=== PATIENT | female | born 1960 | race Caucasian/White ===

== ENCOUNTER 2025-09-02 10:47 | Outpatient (REF) | payer MEDICARE, MEDICAID, SELFPAY ==
--- OUTSIDE RECORDS SUMMARY | 2025-09-02 09:30 | XMS_ITS | Encounter Summary ---
Author Organization [employer] Address [address] [facility] [address] [place] [address] Care Team Providers Care Property Master Name Role Phone Jackie Stewart Primary Care Provider [phone] Encounter Details Date Type Department Care Team ([facility] Contact Info) Description 09/02/2025 9:30 AM EST Office Visit [facility] [address] [place] [address] Jackie Stewart FNP [address] [place] [address] Encounter for adult wellness visit (Primary Dx); Gastroesophageal reflux disease, unspecified whether esophagitis present Social History Tobacco Use Types Packs/Day Years Used Date Smoking Tobacco: Former Cigarettes Passive Smoke Exposure: Never Smokeless Tobacco: Never Comments:Smoked for 22 yrs a t 1 pk a day Alcohol Use Standard Drinks/Week Comments Never 0 (1 standard drink = 0.6 oz pur e alcohol) Depression Answer Date Recorded Patient Health Questionnaire-9 Score 10 09/02/2025 Patient Health Questionnaire-9 Score 10 09/02/2025 Last PHQ-9: Questionnaire Data Not on file 1 11/02/2024 Housing Stability Answer Date Recorded What is your housing situation today? I have apoorva medina 08/26/[address] you li ve. Do you have problems with any of the following? None of the above 08/26/2025 Food Insecurity Answer Date Recorded Within the past 12 months, y ou worried that your food would run out before you got money to buy more: Never True 08/26/2025 Within the past 12 months,th e food you bought just didn't last and you didn't have enough money to get more: Never True Transportation Answer Date Recorded In the past 12 months, has l ack of transportation kept you from medical appts, meetings, work or from getting things needed for daily living? No 08/26/2025 Utilities Answer Date Recorded In the past 12 months, has t he electric, gas, oil or water company threatened to shut off services in your home? No 08/26/2025 Depression Answer Date Recorded Patient Health Questionnaire-2 Score 3 09/02/2025 Internet Access Answer Date Recorded Internet Access Q1 Yes 08/26/2025 Internet Access Q2 Not on file 08/26/2025 Comments Unknown Sex and Gender Information Value Date Recorded Sex Assigned at Female 08/13/2022 10:39 AM EDT Legal Sex Female 10:39 AM EDT Gender Identity Female 08/13/2022 10:39 AM EDT Sexual Orientation Don't know 08/13/2022 10 :39 AM EDT documented as of this encounter Last Filed Vital Signs Vital Sign Reading Time Taken Comments Blood Pressure 146/90 09/02/2025 9:48 AM EST Pulse 96 09/02/2025 9:48 AM EST Temperature 37 C (98.6 F) 09/02/2025 9:48 AM EST Respiratory Rate 22 09/02/2025 9:48 AM EST Oxygen Saturation 98% 09/02/2025 9:48 AM EST Inhaled Oxygen Concentration - - Weight 62.7 kg (138 lb 4 oz) 09/02/2025 9:48 AM EST Height 156.9 cm (5' 1.76 ) 09/02/2025 9:48 AM ES T Body Mass Index 25.48 09/02/2025 9:48 AM EST documented in this encounter Functional Status * Over the past 2 weeks, how often have you been bothered by any of the following problems? Question Answer Date of Assessment Author Patient Health Questionnaire-2 Score 3 09/02/2025 10:48 AM EST Marla Crockett MA * Little interest or pleasure in doing things Answer Date of Assessment Author Several days 09/02/2025 10:48 AM Marla Bryant Ma, [place] * Feeling down, depressed, or hopeless Answer Date of Assessment Author More than half the days 09/02/2025 10:48 AM Marla Talamantes MA * Trouble falling or staying asleep, or sleeping too much Answer Date of Assessment Author More than half the days 09/02/2025 10:48 AM Marla Talamnates MA * Feeling tired or having little energy Answer Date of Assessment Author More than half the days 09/02/2025 10:48 AM Marla Talamantes MA * Poor appetite or overeating Answer Date of Assessment Author More than half the days 09/02/2025 10:48 AM Marla Talamantes MA * Feeling bad about yourself - or that you are a failure or have let yourself or your family down Answer Date of Assessment Author Not at all 09/02/2025 10:48 AM Marla Bryant Ma, [place] * Trouble concentrating on things, such as reading the newspaper or watching television Answer Date of Assessment Author Several days 09/02/2025 10:48 AM Marla Bryant Ma, [place] * Moving or speaking so slowly that other people could have noticed? Or the opposite - being so fidgety or restless that you have been moving around a lot more than usual. Answer Date of Assessment Author Not at all 09/02/2025 10:48 AM Marla Bryant Ma, [place] * Thoughts that you would be better off or hurting yourself in some way Answer Date of Assessment Author Not at all 09/02/2025 10:48 AM Marla Bryant Ma, [place] * Patient Health Questionnaire-9 Score Answer Date of Assessment Author 10 09/02/2025 10:48 AM Marla Bryant Ma, [place] * Over the last 2 weeks, how often have you been bothered by any of the following problems? Question Answer Date of Assessment Author Feeling nervous, anxious, or on edge 1 09/02/2025 10:48 AM Marla Talamantes MA Not being able to stop or control worrying 1 09/02/2025 10:48 AM Marla Talamantes MA Worrying too much about different things 1 09/02/2025 10:48 AM Marla Talamantes MA Trouble relaxing 1 09/02/2025 10:48 AM Marla Talamantes MA Being so restless that it is hard to sit still 0 09/02/2025 10:48 AM Marla Talamantes MA Becoming easily annoyed or irritable 0 09/02/2025 10:48 AM Marla Talamantes MA Feeling afraid as if something awful might happen 1 09/02/2025 10:48 AM Marla Trejo MA MAYELA-7 Total Score 5 09/02/2025 10:48 AM Marla Talamantes MA * How difficult have these problems made it for you to do your work, take care of things at home, or get along with other people? Answer Date of Assessment Author Not difficult at all 09/02/2025 10:48 AM Marla Mariano MA documented as of this encounter Plan of Treatment Scheduled Orders Name Type Priority Associated Diagnoses Orde r Schedule Hepatitis C Antibody with Reflex to HCV, RNA, Quantitative, Real-Time PCR Lab Routine Encounter for adult wellness visit Expected: 09/02/2025, Expires: 09/02/2026 HIV-1/2 Antigen and Antibodies, Fourth Generation, with Reflexes Lab Routine Encounter for adult wellness visit Expected: 09/02/2025 (Approximate), Expires: 09/02/2026 Chlamydia/N. Gonorrhoeae, PCR, Urine Lab Routine Encounter for adult wellness visit Ordered: 09/02/2025 documented as of this encounter Procedures Procedure Name Priority Date/Time Associated Diagnosis Comments CBC WITH AUTO DIFFERENTIAL Routine 09/02/2025 10:55 AM EST Encounter for adult wellness visit TSH Routine 09/02/2025 10:55 AM EST Encounter for adult wellness visit LIPID PANEL, STANDARD Routine 09/02/2025 10:55 AM EST Encounter for adult wellness visit COMPREHENSIVE METABOLIC PANEL Routine 09/02/2025 10:55 AM EST Encounter for adult wellness visit documented in this encounter Results * (ABNORMAL) Lipid Panel, Standard (09/02/2025 10:55 AM EST) Triglycerides 202(H) <150 mg/dL [facility] Comment:Desirable Triglyceri de: less than 150 mg/dLBorderline High Triglyceride 150-199 mg/dLHigh Triglyceride: 200-499 mg/dLVery High Triglyceride: greater than or equal to 5OO mg/dL Cholesterol 181 <200 mg/dL [facility] Comment:Desirable Cholestero l: less than 200 mg/dLBorderline High Cholesterol: 200-239 mg/dLHigh Cholesterol: greater than 239 mg/dL LDL Cholesterol Calculated 100(H) <100 mg/dL [facility] Comment:Desirable LDL: less than 100 mg/dLNear Optimal/Above Optimal LDL: 110- 129 mg/dLBorderline High LDL: 130-159 mg/dLHigh LDL: 160-189 mg/dLVery High LDL: greater than or equal to 190 mg/dL HDL Cholesterol 41 >40 mg/dL [facility] Comment:Desirable HDL: grea ter than 40 mg/dL Note: This HDL assay may give artificially low results in patients with liver disease. Blood Venous blood specimen / Unknown 09/02/2025 10:55 AM EST 09/02/2025 12:50 PM EST us Jackie Stewart [employer]PA[employer] [facility] BLOOD ORDERABLES Final Res ult [facility] [address] [place] [address] [phone] * (ABNORMAL) CBC auto differential (09/02/2025 10:55 AM EST) White Blood Count 8.4 4.8 - 10.8 X10*3/uL [facility] Red Blood Count 3.15(L) 4.20 - 5.50 X10*6/uL [facility] Hemoglobin 8.4(L) 12.0 - 16.0 g/dl [facility] Hematocrit 29.6(L) 37.0 - 47.0 % [facility] Mean Corpuscular Volume 94.0 80.0 - 98.0 fL [facility] Mean Corpuscular Hemoglobin 26.7(L) 27.0 - 33.0 pg [facility] Mean Corpuscular HGB Conc 28.4(L) 31.0 - 35.0 g/dl [facility] Red Cell Distribution Width 20.9(H) 11.0 - 16.0 % [facility] Platelet Count 351 160 - 400 X10*3/uL [facility] Mean Platelet Volume 11.6 9.4 - 12.3 fL [facility] Neutrophils Percent Auto 71.6 45 - 73 % [facility] Imm Gran Pct Auto 0.8(H) 0.0 - 0.4 % [facility] Lymphocytes Percent Auto 14.7(L) 20 - 40 % [facility] Monocytes Percent Auto 6.0 2 - 11 % [facility] Eosinophils Percent Auto 6.5(H) 0 - 4 % [facility] Basophils Percent Auto 0.4 0 - 2 % [facility] NRBC Pct Auto 0.0 0.0 - 0.2 /100WBC [facility] Neutrophils Absolute Auto 6.0 2.0 - 8.3 x10*3/uL [facility] Imm Gran Abs Auto 0.07(H) 0.00 - 0.03 X10*3/uL [facility] Lymphocytes Absolute Auto 1.2 1.2 - 4.9 X10*3/uL [facility] Monocytes Absolute Auto 0.5 0.1 - 1.2 X10*3/uL [facility] Eosinophils Absolute Auto 0.6(H) 0.0 - 0.4 X10*3/uL [facility] Basophils Absolute Auto 0.0 0.0 - 0.2 X10*3/uL [facility] NRBC Abs Auto 0.000 0.0 - 0.012 X10*3/uL [facility] Blood Venous blood specimen / Unknown 09/02/2025 10:55 AM EST 09/02/2025 12:50 PM EST us [employer] [facility] BLOOD ORDERABLES Final Res ult Performing Organization Address City/[facility]/ZIP Co de Phone Number [facility] [address] [place] [phone] * TSH (09/02/2025 10:55 AM EST) Thyroid Stimulating Hormone 1.86 0.32 - 4.0 uIU/mL [facility] Comment:TSH 3rd Generation ( [employer]) Blood Venous blood specimen / Unknown 09/02/2025 10:55 AM EST 09/02/2025 12:50 PM EST [facility] Final Res ult Performing Organization Address [facility] Co de Phone Number [facility] [address] [place] [phone] * (ABNORMAL) Comprehensive Metabolic Panel (09/02/2025 10:55 AM EST) Sodium 144 135 - 145 mmol/L [facility] Potassium 3.8 3.3 - 5.1 mmol/L [facility] Chloride 113(H) 96 - 108 mmol/L [facility] Carbon Dioxide 24 22 - 29 mmol/L [facility] Anion Gap 11(L) 12 - 20 [facility] Urea Nitrogen (BUN) 15 9 - 16 mg/dL [facility] Creatinine, Serum 1.21 0.5 - 1.4 mg/dL [facility] Estimated Glomerular Filt Rate 44 [facility] Comment:Chronic Kidney Disea se: Estimated GFR < 60 mL/min/1.17e3Cgamsr Kidney Disease: Estimated GFR < 15 mL/min/1.73m2 Glucose 101 60 - 115 mg/dL [facility] Calcium 8.5 8.4 - 10.2 mg/dL [facility] Bilirubin, Total 0.1 0.0 - 1.0 mg/dL [facility] Aspartate Amino Transferase 22 5 - 31 U/L [facility] Alanine Aminotransferase 6 0 - 31 U/L [facility] Total Protein 7.2 6.5 - 8.0 g/dL [facility] Albumin Level 3.7 3.5 - 5.0 g/dL [facility] Alkaline Phosphatase 143(H) 39 - 117 U/L [facility] Blood Venous blood specimen / Unknown 09/02/2025 10:55 AM EST 09/02/2025 12:50 PM EST Jackie MORENO LAB BLOOD ORDERABLES Final Res ult [facility] [address] [place] [phone] documented in this encounter Visit Diagnoses Diagnosis Encounter for adult wellness visit- Primary Gastroesophageal reflux disease, unspecified whether esophagitis present documented in this encounter Additional Health Concerns Assessment Noted Time PHQ-9 Depression Total Score: 10 025 10:48 AM EST documented as of this encounter Care Teams Property Master Relationship Specialty Start Date End Date Jackie Stewart FNP [address] [place] [phone] PCP - General Family Medicine 08/06/25 documented as of this encounter
[2025-09-02 12:58] LABS: MANUAL DIFF FLAG NO
[2025-09-02 13:11] LABS: Hematocrit 29.6 % (37.0-47.0); Hemoglobin 8.4 g/dl (12.0-16.0); Imm Gran Abs Auto 0.07 X10*3/uL (0.00-0.03); Imm Gran Pct Auto 0.8 % (0.0-0.4); Lymphocytes Absolute Auto 1.2 X10*3/uL (1.2-4.9); Mean Corpuscular HGB Conc 28.4 g/dl (31.0-35.0); Mean Corpuscular Hemoglobin 26.7 pg (27.0-33.0); Mean Corpuscular Volume 94.0 fL (80.0-98.0); NRBC Abs Auto 0.000 X10*3/uL (0.0-0.012); NRBC Pct Auto 0.0 /100WBC (0.0-0.2); Platelet Count 351 X10*3/uL (160-400); Red Blood Count 3.15 X10*6/uL (4.20-5.50); White Blood Count 8.4 X10*3/uL (4.8-10.8)
[2025-09-02 14:07] LABS: Alanine Aminotransferase 6 U/L (0-31); Albumin Level 3.7 g/dL (3.5-5.0); Alkaline Phosphatase 143 U/L (39-117); Anion Gap 11 (12-20); Aspartate Amino Transferase 22 U/L (5-31); Blood Urea Nitrogen 15 mg/dL (9-16); Calcium 8.5 mg/dL (8.4-10.2); Carbon Dioxide 24 mmol/L (22-29); Chloride 113 mmol/L (96-108); Cholesterol 181 mg/dL (<200); Estimated Glomerular Filt Rate 44; HDL Cholesterol 41 mg/dL (>40); Potassium 3.8 mmol/L (3.3-5.1); Sodium 144 mmol/L (135-145); Total Protein 7.2 g/dL (6.5-8.0); Triglycerides 202 mg/dL (<150)
[2025-09-02 14:15] LABS: Thyroid Stimulating Hormone 1.86 uIU/mL (0.32-4.0)
--- OUTSIDE RECORDS SUMMARY | 2025-09-02 16:22 | XMS_ITS | Encounter Summary ---
Author Organization [employer] Address [address] [place] [address] [address] [place] [address] Care Team Providers Care Oral Surgery Physician Name Role Phone Jackie Stewart Primary Care Provider [phone] Reason for Visit * Reason Onset Date Comments Chart Prep 09/01/2025 Encounter Details Date Type Department Care Team ([facility] Contact Info) Description 09/01/2025 Telephone [facility] MEDICINE [address] [place] [address] Jackie Stewart FNP [address] [place] [address] Chart Prep Social History Tobacco Use Types Packs/Day Years Used Date Smoking Tobacco: Never Smokeless Tobacco: Never Alcohol Use Standard Drinks/Week Comments Never 0 [...] AM EDT documented as of this encounter Miscellaneous Notes * Telephone Encounter - Apoorva Bradshaw MA - 09/01/2025 10:06 AM EST Chart Prep Labs: done Images: not done Referrals: not applicable Vaccines due: Covid, Flu, PCV20, Zoster, and DTAP Screenings: colonoscopy and mammogramAlcohol/Substance Use Screening Overdue care gaps: SBIRT, PHQ-9, and MAYELA-7 documented in this encounter Plan of Treatment Not on file documented as of this encounter Visit Diagnoses Not on filedocumented in this encounter Care Teams Oral Surgery Physician Relationship Specialty Start Date End Date Jackie Stewart FNP [address] [place] [phone] PCP - General Family Medicine 08/06/25 documented as of this encounter
--- OUTSIDE RECORDS SUMMARY | 2025-09-02 16:22 | XMS_ITS | Encounter Summary ---
Author Organization [employer] Address [address] [facility] [address] [place] [address] Care Team Providers Care Diamond Die Driller Name Role Phone Jackie Stewart STAMPER BLOCKER Primary Care Provider [phone] Encounter Details Date Type Department Care Team (Latest Contact Info) Description 09/02/2025 Travel Social History Tobacco Use Types Packs/Day Years [...] AM EDT documented as of this encounter Functional Status * Over the past 2 weeks, how often have you been bothered by any of the following problems? Question Answer Date of Assessment Author Patient Health Questionnaire-2 Score 3 09/02/2025 10:48 AM Marla Walden [place] * Little interest or pleasure in [...] 10:48 AM Marla Talamantes [place] * Feeling tired or having little [...] as of this encounter Plan of Treatment Not on file documented as of this encounter Visit Diagnoses Not on filedocumented in this encounter Additional Health Concerns Assessment Noted Time PHQ-9 Depression Total Score: 10 025 10:48 AM EST documented as of this encounter Care Teams Diamond Die Driller Relationship Specialty Start Date End Date Jackie Stewart FNP [address] [place] [phone] PCP - General Family Medicine 08/06/25 documented as of this encounter
--- OUTSIDE RECORDS SUMMARY | 2025-09-02 16:22 | XMS_ITS | Clinical Summary ---
Author Organization [employer] Address [address] [place] [address] [address] [place] [address] Care Team Providers Care Net Mender Name Role Phone Jackie Stewart [facility] Primary Care Provider [phone] Allergies No known active allergies Medications ibuprofen 200 MG tablet Take 2 tablets by mouth every 6 (six) hours if needed for pain. Active Diclofenac Sodium 1 % gelIndications: Acute pain of left knee,Left hip pain Apply 1 each topically every 12 (twelve) hours if needed (apply on affected areas 150). 150 g 07/09/20 24 Active ferrous sulfate 325 (65 Fe) MG tablet Take 1 tablet by mouth every other day. Active olmesartan (Benicar) 20 MG tablet Take 1 tablet (20 mg) by mouth Once per day. 30 tablet 3 09/02/20 25 026 Active omeprazole (PriLOSEC) [address] capsuleIndicati ons:Gastroesoph ageal reflux disease, unspecified whether esophagitis present Take 1 capsule (40 mg) by mouth before breakfast. Do not crush or chew. 90 capsule 1 09/02/20 25 Active omeprazole (PriLOSEC) [address] capsuleIndicati ons:Gastroesoph ageal reflux disease, unspecified whether esophagitis present Take 1 capsule (40 mg) by mouth before breakfast. Do not crush or chew. 30 capsule 1 07/09/20 24 025 Discontinued(Re order (will not trigger notification to Pharmacy)) amLODIPine (Norvasc) 5 MG tablet Take 1 tablet by mouth Once per day. 07/20/20 25 025 Discontinued(In effective) amoxicillin-cla vulanate (Augmentin) 875-125 MG tablet Take 1 tablet by mouth 2 times daily. 07/20/20 25 025 Xarelto Starter Pack 15 & 20 MG tablet therapy pack TAKE DIRECTED PER PACKAGE: TAKE ONE 15MG TABLET BY MOUTH TWO TIMES A DAY FOR 21 DAYS THEN TAKE ONE 20MG DAILY THERAFTER 07/20/20 25 025 Discontinued(Th erapy completed) Active Problems Problem Noted Date Diagnosed Date Cerebral infarction 09/02/2025 Tubular adenoma 09/02/2025 Chronic low back pain 09/01/2025 Depressive disorder 09/01/2025 History of cholecystectomy 09/01/2025 Opioid dependence 09/01/2025 Acute pain of left knee 07/09/2024 Left hip pain 07/09/2024 GERD (gastroesophageal reflux disease) Anxiety 10/02/2022 Gastroesophageal reflux disease 10/02/2022 Hypertensive disorder 10/02/2022 Encounters Date Type Department Care Team Description 09/02/2025 9:30 AM EST Office Visit [address] [id number] Jackie Stewart FNP Encounter for adult wellness visit (Primary Dx); Gastroesophageal reflux disease, unspecified whether esophagitis present 09/02/2025 Travel 09/01/[address] [phone] Jackie Stewart FNP Chart Prep 08/26/2025 Patient Outreach [facility] [address], [place] [phone] Jackie Stewart FNP Pre-visit Planning (SDOH negative. Tobacco screening negative. ) 08/06/2025 Travel 08/05/[address] [phone] Ana Paula Flowers NP CHARTPREP 07/22/[address] [phone] Liliya Chirinos NP Chart Prep 07/21/2025 Patient Outreach [address] [phone] Liliya Chirinos NP Transition Of Care (Tcm) (HDF unscheduled) 07/16/2025 Patient Outreach [facility] [address] [place] [address] Liliya Chirinos NP Pre-visit Planning ([facility] unable to reach LVM ) from Last 3 Months Immunizations Immunization Administration Dates Next Due Td (adult), unspecified 12/26/2005 Family History Medical History Relation Name Comments Diabetes Father Colon cancer Mother Cancer Sister Relation Name Status Comments Father Mother Sister Social History Tobacco Use Types Packs/Day Years [...] Don't know 08/13/2022 10 :39 AM EDT Last Filed Vital Signs Vital Sign Reading [...] Mass Index 25.48 09/02/2025 9:48 AM EST Plan of Treatment Health Maintenance Due Date Last Done Comments CT Colonography 1958 Colonoscopy 1958 Colorectal Cancer Screening 1958 FIT DNA/Cologuard 1958 FIT 1958 FOBT 1958 Lipid Panel 1958 09/02/2025 Sigmoidoscopy 1958 Mammogram 1998 Depression Monitoring 03/02/2026 09/02/2025 , 09/02/2025 Influenza Vaccine (#1) 2026 Postp oned from 06/14/2025 (Patient Refused) SDOH Screening 08/26/2026 08/26/2025 Alcohol/Substance Use Screening 09/02/2026 09/02/2025 COVID-19 Vaccine (2 - 2024-2 6 season) 2026 03/20/2022 Postponed from 06/14 (Patient Refused) DTaP/Tdap/Td Vaccines (1 - Tdap) 09/02/2026 12/26/2005 Postponed from 12/27 (Patient Refused) Pneumococcal Vaccine: 50+ Years (1 of 1 - PCV) 09/02/2026 Postponed from 05/2008 (Patient Refused) Tobacco Screening 09/02/2026 09/02/2025 Zoster Vaccines (1 of 2) 09/02/2026 Pos tponed from 2008 (Patient Refused) RSV Patients and Patients Aged 60 years or older (1 - 1-dose 75+ series) 2033 Hepatitis C Screening Completed 08/14/2021 HIB Vaccines Aged Out No longer eligi ble based on patient's age to complete this topic HPV Vaccines Aged Out No longer eligi ble based on patient's age to complete this topic Hepatitis A Vaccines Aged Out No long er eligible based on patient's age to complete this topic Hepatitis B Vaccines Aged Out No long er eligible based on patient's age to complete this topic IPV Vaccines Aged Out No longer eligi ble based on patient's age to complete this topic Meningococcal B Vaccine Aged Out No l onger eligible based on patient's age to complete this topic Meningococcal Vaccine Aged Out No esperanza ayaz eligible based on patient's age to complete this topic RSV under 20 months Aged Out No longe r eligible based on patient's age to complete this topic Rotavirus Vaccines Aged Out No longer eligible based on patient's age to complete this topic Procedures Procedure Name Priority Date/Time Associated Diagnosis Comments LIPID PANEL, STANDARD Routine 09/02/2025 10:55 AM EST Encounter for adult wellness visit CBC WITH AUTO DIFFERENTIAL Routine 09/02/2025 10:55 AM EST Encounter for adult wellness visit TSH Routine 09/02/2025 10:55 AM EST Encounter for adult wellness visit COMPREHENSIVE METABOLIC PANEL Routine 09/02/2025 10:55 AM EST Encounter for adult wellness visit ZZZ HISTORICAL HEPATITIS C AB W/REFL TO HCV RNA, QN, PCR Routine 08/14/2021 11:15 AM EDT from Last 3 Months or Most Recently Relevant to Health Maintenance Results * (ABNORMAL) CBC auto differential (09/02/2025 10:55 AM EST) White Blood Count 8.4 4.8 - 10.8 X10*3/uL [facility] Red Blood Count 3.15(L) 4.20 - 5.50 X10*6/uL [facility] Hemoglobin 8.4(L) 12.0 - 16.0 g/dl [facility] Hematocrit 29.6(L) 37.0 - 47.0 % [facility] Mean Corpuscular Volume 94.0 80.0 - 98.0 fL [facility] Mean Corpuscular Hemoglobin 26.7(L) 27.0 - 33.0 pg [facility] Mean Corpuscular HGB Conc 28.4(L) 31.0 - 35.0 g/dl [facility] Red Cell Distribution Width 20.9(H) 11.0 - 16.0 % [facility] Platelet Count 351 160 - 400 X10*3/uL [facility] Mean Platelet Volume 11.6 9.4 - 12.3 fL [facility] Neutrophils Percent Auto 71.6 45 - 73 % [facility] Imm Gran Pct Auto 0.8(H) 0.0 - 0.4 % [facility] Lymphocytes Percent Auto 14.7(L) 20 - 40 % [facility] Monocytes Percent Auto 6.0 2 - 11 % [facility] Eosinophils Percent Auto 6.5(H) 0 - 4 % [facility] Basophils Percent Auto 0.4 0 - 2 % [facility] NRBC Pct Auto 0.0 0.0 - 0.2 /100WBC [facility] Neutrophils Absolute Auto 6.0 2.0 - 8.3 x10*3/uL [facility] Imm Gran Abs Auto 0.07(H) 0.00 - 0.03 X10*3/uL [facility] Lymphocytes Absolute Auto 1.2 1.2 - 4.9 X10*3/uL [facility] Monocytes Absolute Auto 0.5 0.1 - 1.2 X10*3/uL [facility] Eosinophils Absolute Auto 0.6(H) 0.0 - 0.4 X10*3/uL [facility] Basophils Absolute Auto 0.0 0.0 - 0.2 X10*3/uL [facility] NRBC Abs Auto 0.000 0.0 - 0.012 X10*3/uL [facility] Blood Venous blood specimen / Unknown 09/02/2025 10:55 AM EST 09/02/2025 12:50 PM EST [facility] LAB BLOOD ORDERABLES Final Res ult Performing Organization Address [facility] Co de Phone Number [facility] [address] [place] [phone] * TSH (09/02/2025 10:55 AM EST) Thyroid Stimulating Hormone 1.86 0.32 - 4.0 uIU/mL [facility] Comment:TSH 3rd Generation ( Relationship Science) Blood Venous blood specimen / Unknown 09/02/2025 10:55 AM EST 09/02/2025 12:50 PM EST [facility] LAB BLOOD ORDERABLES Final Res ult Performing Organization Address [facility] Co de Phone Number [facility] [address] [place] [phone] * (ABNORMAL) Lipid Panel, Standard (09/02/2025 10:55 AM EST) Triglycerides 202(H) <150 mg/dL [facility] Comment:Desirable Triglyceri de: less than 150 mg/dLBorderline High Triglyceride 150-199 mg/dLHigh Triglyceride: 200-499 mg/dLVery High Triglyceride: greater than or equal to 5OO mg/dL Cholesterol 181 <200 mg/dL [facility] Comment:Desirable Cholestero l: less than 200 mg/dLBorderline High Cholesterol: 200-239 mg/dLHigh Cholesterol: greater than 239 mg/dL LDL Cholesterol Calculated 100(H) <100 mg/dL [facility] Comment:Desirable LDL: less than 100 mg/dLNear Optimal/Above Optimal LDL: 110- 129 mg/dLBorderline High LDL: 130-159 mg/dLHigh LDL: 160-189 mg/dLVery High LDL: greater than or equal to 190 mg/dL HDL Cholesterol 41 >40 mg/dL [facility] Comment:Desirable HDL: great er than 40 mg/dL Note: This HDL assay may give artificially low results in patients with liver disease. Blood Venous blood specimen / Unknown 09/02/2025 10:55 AM EST 09/02/2025 12:50 PM EST us Jackie Stewart [employer] [facility] LAB BLOOD ORDERABLES Final Res ult [facility] [address] [place] [phone] * (ABNORMAL) Comprehensive Metabolic Panel (09/02/2025 10:55 AM EST) Sodium 144 135 - 145 mmol/L [facility] Potassium 3.8 3.3 - 5.1 mmol/L [facility] Chloride 113(H) 96 - 108 mmol/L [facility] Carbon Dioxide 24 22 - 29 mmol/L [facility] Anion Gap 11(L) 12 - 20 [facility] Urea Nitrogen (BUN) 15 9 - 16 mg/dL [facility] Creatinine, Serum 1.21 0.5 - 1.4 mg/dL [facility] Estimated Glomerular Filt Rate 44 [facility] Comment:Chronic Kidney Disea se: Estimated GFR < 60 mL/min/[id number] Kidney Disease: Estimated GFR < 15 mL/min/1.73m2 Glucose 101 60 - 115 mg/dL [facility] Calcium 8.5 8.4 - 10.2 mg/dL [facility] Bilirubin, Total 0.1 0.0 - 1.0 mg/dL [facility] Aspartate Amino Transferase 22 5 - 31 U/L [facility] Alanine Aminotransferase 6 0 - 31 U/L [facility] Total Protein 7.2 6.5 - 8.0 g/dL [facility] Albumin Level 3.7 3.5 - 5.0 g/dL [facility] Alkaline Phosphatase 143(H) 39 - 117 U/L [facility] Blood Venous blood specimen / Unknown 09/02/2025 10:55 AM EST 09/02/2025 12:50 PM EST us Jackie Quetahemalatha [employer] EM[employer] LAB BLOOD ORDERABLES Final Res ult [facility] [address] [place] [phone] * HEPATITIS C AB W/REFL TO HCV RNA, QN, PCR (08/14/2021 11:15 AM EDT) HEPATITIS C ANTIBODY NON-REACT KENNA NON-REACT KENNA [facility] INDEX 0.01 <1.00 [facility] Comment: HCV antibody was non-reactive. There is no laboratory evidence of HCV infection. In most cases, no further action is required. However, if recent HCV exposure is suspected, a test for HCV RNA (test code 92086) is suggested. For additional information please refer to http://education.[employer].com/faq/NGF02x2 (This link is being provided for informational/ educational purposes only.) 08/14/2021 11:1 5 AM EDT us Serafin Vincent MD HISTORICAL/NON ORDERABLE LABS Fi nal Result Performing Organization Address City/[facility]/ZIP Co de Phone Number [facility] [address] from Last 3 Months or Most Recently Relevant to Health [place] [id number] [facility] Care Teams Net Mender Relationship Specialty Start Date End Date Jackie Stewart FNP [address] [place] [phone] PCP - General Family Medicine 08/06/25
[2025-09-03 08:32] LABS: HIV Num 1 0.08 S/CO (0.00-0.99); ~HepC Num1 0.26 S/CO (0.00-0.79); ~Hepatitis C Antibody Nonreactive (Nonreactive)
== END 2025-09-02 10:48 | disposition home or self-care (01) ==
LOC: HO.HHCL 10:47
PROVIDERS: PCP Nurse Practitioner Family; Visit Provider Nurse Practitioner Family
DX: Z00.00 Encounter for general adult medical examination without abnormal findings (principal); Z13.29 Encounter for screening for other suspected endocrine disorder; Z13.6 Encounter for screening for cardiovascular disorders; Z13.0 Encounter for screening for diseases of the blood and blood-forming organs and certain disorders involving the immune mechanism
CPT/HCPCS: 36415; 80053; 80061; 84443; 85025; 86803; 87389